=== PATIENT | male | born 1960 | race Caucasian/White ===

== ENCOUNTER → 2017-03-12 | Outpatient (CLI) | payer OTHER, MEDICARE | LOC: BRMIMAGING 13:18 | PROVIDERS: ATTEND Internal Medicine Rheumatology | DX: M15.4 Erosive (osteo)arthritis (principal) | CPT/HCPCS: 73130-PO ==

== ENCOUNTER → 2017-07-10 | Outpatient (CLI) | payer OTHER, MEDICARE | LOC: BRMIMAGING 09:45 | PROVIDERS: ATTEND Internal Medicine Rheumatology | DX: M25.761 Osteophyte, right knee (principal); M25.762 Osteophyte, left knee | CPT/HCPCS: 73562-PO ==